=== PATIENT | female | born 1975 | race Caucasian/White ===

== ENCOUNTER → 2016-11-15 12:47 | Outpatient (CLI) | payer MEDICARE ==
[2013-07-07 07:59] VITALS: BMI 24.1
[~2016-11-15 12:47] MED LIST: ARBINOXA4 MG/5 ML OR; CELEXA20 MG PO; FLAXSEED OIL1000 MG PO; KLONOPIN0.5 MG PO; LINZESS145 MCG PO; MELATONIN 3 MG1 TAB PO; MOTRIN600 MG PO; MULTI-DAY VITAM1 TAB; OMNARIS12.5 GM NS; PERCOCET 10/3251 TA1 PO; PRILOSEC20 MG PO; PROBIOTIC; STOOL SOFTENER240 MG PO; ZADITOR5 ML EACH EYE
== END | disposition home or self-care (01) ==
LOC: D.US 11-13 11:30
DX: E04.9 Nontoxic goiter, unspecified (principal)

== ENCOUNTER → 2018-05-29 17:08 | Outpatient (CLI) | payer BC ==
[2013-07-07 07:59] VITALS: BMI 24.1
== END | disposition home or self-care (01) ==
LOC: D.MAMMO 10:45
DX: Z12.31 Encounter for screening mammogram for malignant neoplasm of breast (principal)

== ENCOUNTER 2019-05-28 09:00 | Outpatient (CLI) | payer BC ==
[2013-07-07 07:59] VITALS: BMI 24.1
== END 2019-05-28 10:00 | disposition home or self-care (01) ==
LOC: D.MAMMO 09:00
PROVIDERS: ATTEND Family Medicine
DX: Z12.31 Encounter for screening mammogram for malignant neoplasm of breast (principal)